=== PATIENT | female | born 1955 | race Caucasian/White ===

== ENCOUNTER 2019-04-18 12:03 | Day surgery (SDC) | payer OTHER ==
[2019-04-18] MEDS ORDERED: PROPOFOL 10 MG/ML VIAL IV ONE (12:04)
[2019-04-18] MEDS ORDERED: LIDOCAINE 2% MDV (20MG/ML) 20ML VIAL IV ONE (12:04)
--- NOTE | 2019-04-20 13:40 | Operative Note ---
OPERATION: COLONOSCOPY to the cecum with cold biopsy forceps polypectomy. INDICATION: Family history of colon cancer (father). The patient's last examination was 2013. She presents today for screening. She had a hyperplastic polyp removed in the past. ANESTHESIA: Intravenous sedation was administered by the department of anesthesiology and included Diprivan titrated to effect. PROCEDURE: Following informed consent from this alert individual including a discussion of the risks and benefits of the procedure and an opportunity for the patient to ask questions, the patient was in the left lateral decubitus position. A digital rectal examination was performed. No abnormalities were noted. Following this, the Olympus [id number] video colonoscope was inserted into the rectum without resistance. The rectal mucosa had a normal appearance with normal folds and distensibility. The colonoscope was advanced into the sigmoid colon where a few scattered diverticula were noted. It was advanced father up through the colon to the level of the cecum without much difficulty. Throughout the remainder of the bowel, the mucosa appeared normal, the folds were normal, and the bowel was fairly well distensible. There was a 3 mm diminutive polyp noted in the distal ascending colon, and this was removed with cold biopsy forceps. The cecum was defined by noting the appendiceal orifice and ileocecal valve. From the base of the cecum, the colonoscope was then slowly withdrawn. No additional changes were appreciated. Again, a few scattered diverticula were seen in the sigmoid colon. No additional polyps were noted. Retroflexion in the rectum revealed small internal hemorrhoids. The endoscope was straightened and removed. The patient tolerated the procedure well and was returned to the recovery area in stable condition. IMPRESSION: 1. A 3 mm ascending colon polyp removed by biopsy forceps. 2. Sigmoid diverticulosis. 3. Small internal hemorrhoids. RECOMMENDATIONS: Further recommendations will be forthcoming pending results of pathology obtained today. Most likely the patient will have recheck colonoscopy in 5 years' time due to her family history of colon cancer or sooner if problems arise. Followup will be with Jai Sierra, nurse practitioner. As always, thank you for allowing me to participate in the care of your patient. CLAIRE
== END 2019-04-18 14:40 | disposition home or self-care (01) ==
LOC: HOP 12:03
PROVIDERS: ATTEND Internal Medicine Gastroenterology
DX: Z12.11 Encounter for screening for malignant neoplasm of colon (principal); D12.2 Benign neoplasm of ascending colon; K57.30 Diverticulosis of large intestine without perforation or abscess without bleeding; Z86.010 Personal history of colon polyps; Z80.0 Family history of malignant neoplasm of digestive organs; I10 Essential (primary) hypertension